=== PATIENT | male | born 1980 | race Two or more races ===

== ENCOUNTER 2018-10-15 22:00 | Emergency (ER) | payer SELFPAY ==
[~2018-10-15] VITALS: Ht 185.4 cm; Wt 104.3 kg
[2018-10-15 22:15] VITALS: BP 132/77
[2018-10-15] MEDS ORDERED: DIPHTH,PERTUSS(ACELL),TET TOX 0.5 ML DISP.SYRIN. VAX IM ONE (23:30)
[2018-10-15] MEDS ORDERED: KETOROLAC 30 MG/ML VIAL. IM ONE (23:30)
--- NOTE | 2018-10-15 23:34 | RAD ---
Right knee 3 views. HISTORY: Trauma, pain to right knee, shooting self with staplegun 3 views were taken of the right knee. There is no fracture or osseous abnormality. An opaque foreign body is not identified. There is no joint effusion. IMPRESSION: 1. No acute osseous abnormality noted in the right knee. Electronically signed by: Sina Cifuentes MD (10/15/2018 11:31 PM) [facility]
--- NOTE | 2018-10-16 00:05 | PHYS DOC ---
Past Medical History Past Medical History: No Pertinent History Past Surgical History: No Surgical History Alcohol Use: None Drug Use: None Adult General Chief Complaint Chief Complaint: KNEE INJURY HPI HPI Patient is a 38 year old male presents with chief complaint of knee pain. He put a staple gun accident to his right anterior skin of his knee t he took the staple out when he woke up the pain was increasing so he wanted to come in to get checked out. Increase with palpation is actually still able to move it okay. Review of Systems Review of Systems Neurologic: Denies headache, focal weakness or sensory changes [] All other systems were reviewed and found to be within normal limits, except as documented in this note. Current Medications Current Medications Current Medications Medications (Trade) Dose Ordered Sig/Ivis Start Time Stop Time Status Last Admin Dose Admin Diphtheria/ Tetanus/Acell Pertussis (Boostrix) 0.5 ml ONCE ONCE 10/15/18 23:30 10/15/18 23:30 DC 10/15/18 23:08 0.5 ML Ketorolac Tromethamine (Toradol 30mg Vial) 30 mg 1X ONCE 10/15/18 23:30 10/15/18 23:30 DC 10/15/18 23:03 30 MG Allergies Allergies Allergies Coded Allergies Type Severity Reaction Last Updated Verified No Known Drug Allergies 10/15/18 No Physical Exam Physical Exam Constitutional: Well developed, well nourished, no acute distress, non-toxic appearance. [] HENT: Normocephalic, atraumatic, bilateral external ears normal, oropharynx moist, no oral exudates, nose normal. [] Eyes: PERRLA, EOMI, conjunctiva normal, no discharge. [] Neck: Normal range of motion, no tenderness, supple, no stridor. [] Skin: Small abrasion to the anterior right skin just below the patella Back: No tenderness, no CVA tenderness. [] Extremities: No tenderness, no cyanosis, no clubbing, ROM intact, no edema. [] Full range of motion of the right knee is noted without any pain with minimal pain only Neurologic: Alert and oriented X 3, normal motor function, normal sensory function, no focal deficits noted. [] Psychologic: Affect normal, judgement normal, mood normal. [] Current Patient Data Vital Signs Vital Signs Date Time Temp Pulse Resp B/P (MAP) Pulse Ox O2 Delivery O2 Flow Rate FiO2 7/8/19 22:15 98.6 70 18 132/77 (95) 98 Room Air 98.6 EKG EKG [] Radiology/Procedures Radiology/Procedures [] Course & Med Decision Making Course & Med Decision Making Pertinent Labs and Imaging studies reviewed. (See chart for details) []Tightness given Toradol given patient felt better x-ray negative reassured Viki Disclaimer Dragon Disclaimer This electronic medical record was generated, in whole or in part, using a voice recognition dictation system. Departure Departure Impression: Primary Impression: Abrasion, right knee, initial encounter Disposition: HOME, SELF-CARE Condition: STABLE Patient Instructions: Trudy, [id number] OLMAN NEELY MD Oct 16, 2018 00:05
== END 2018-10-15 23:25 | disposition home or self-care (01) ==
LOC: ER 22:00
DX: S80.211A Abrasion, right knee, initial encounter (principal); W26.8XXA Contact with other sharp object(s), not elsewhere classified, initial encounter; Y93.89 Activity, other specified; Y92.89 Other specified places as the place of occurrence of the external cause; Y99.8 Other external cause status
CPT/HCPCS: 73562; 90471; 90715; 96372; 99284; J1885